=== PATIENT | female | born 1995 | race Caucasian/White ===

== ENCOUNTER 2024-02-22 10:44 | Emergency (ER) | payer OTHER, SELFPAY ==
[2024-02-22 10:46] VITALS: BP 148/97; PULSE 110; RESP 18; TEMP 37; O2SAT 99; BMI 27.3
--- NOTE | 2024-02-22 11:10 | US_ITS ---
EXAM: US ABDOMEN LIMITED, RIGHT UPPER QUADRANT CLINICAL INDICATION: RUQ PAIN TECHNIQUE: Real-time ultrasound of the right upper quadrant with image documentation. COMPARISON: No relevant prior studies available. FINDINGS: LIVER: Normal. There is normal echotexture. No focal hepatic lesion. No intrahepatic biliary ductal dilation. GALLBLADDER: Tumefactive sludge noted within the gallbladder. No acoustic shadowing to suggest gallbladder stone. No gallbladder wall thickening is demonstrated. No pericholecystic fluid. Negative sonographic Philip''s sign. COMMON BILE DUCT: Unremarkable as visualized. The proximal common bile duct is normal size. PANCREAS: Unremarkable as visualized. No focal abnormality is demonstrated in the pancreas. No pancreatic ductal dilatation. RIGHT KIDNEY: Small calcifications are noted within the right kidney. There is no hydronephrosis. No shadowing calculus. No focal lesion or perinephric collection is demonstrated. US/Gallbladder IMPRESSION: 1. Gallbladder sludge without stones. 2. Right nephrolithiasis. Electronically Signed: Dylan Villela MD at 12:44 EDT ,
--- NOTE | 2024-02-22 11:10 | ED.VIS.GI ---
HPI HPI - GI History of Present Illness Chief Complaint: Abd Pain Informant: patient Abdominal Pain/Flank Pain Onset: Days Context: Gradual Onset Timing: Intermittent Location: Epigastric and RUQ Current Severity: Mild Maximum Severity: Mild Worsened by: Food Relieved by: Nothing Nausea/Vomiting/Emesis GI Symptom: Positive for Nausea; Negative for Vomiting Onset: Days Severity: Mild Diarrhea/Melena/Hematochezia GI Symptom: Positive for Diarrhea; Negative for Melena or Hematochezia Onset: Days Stool Quality: Positive for Loose Severity: Mild Associated Symptoms Associated Symptoms: Negative for Dysuria, Frequency, Hematuria or Urgency Narrative Narrative: 28-year-old female history of migraine headaches and ADHD. No prior abdominal surgeries. Since last has had epigastric and right upper quadrant abdominal pain. Associated nausea no vomiting. No fever. She has had diarrhea with no blood. No dysuria. Food makes the pain worse. Prior similar symptoms: No Recent Illness/Hospitalization: No PFSH PFSH Home Medications ?Medication ?Instructions ?Recorded ?Last Taken ?Type ondansetron 4 mg disintegrating 4 mg PO Q6H PRN nausea and 02/22/24 Unknown Rx tablet vomiting #10 tabs Allergy/AdvReac Type Severity Reaction Status Date / Time meloxicam (From Mobic) AdvReac Intermediate ORAL SORES Verified 02/22/24 10:45 tramadol AdvReac Intermediate HEADACHE Verified 02/22/24 10:45 cephalexin (From Keflex) AdvReac Mild Nausea/Vom/ Verified 02/22/24 10:45 Diarrhea Social History Smoking Status: Current every day smoker tobacco type: e-cigarettes ROS ROS ED ROS Narrative Abdominal pain. Diarrhea. Nausea. Review of Systems ROS Unobtainable: Denies due to encephalopathy Constitutional Constitutional ED: Denies chills or fever(s) ENT ENT ED: Denies ear pain Cardiovascular Cardiovascular: Denies chest pain Respiratory/Chest Respiratory/Chest: Denies dyspnea Gastrointestinal Gastrointestinal: Reports abdominal pain, diarrhea and nausea; Denies constipation, melena or vomiting Genitourinary Genitourinary ED: Denies dysuria or hematuria Musculoskeletal Musculoskeletal: Denies arthralgias, back pain, myalgias or neck pain Integumentary Denies abscess or Abrasions Neurologic Neurologic: Denies headache(s) Psychiatric Psychiatric: Denies anxiety Endocrine Endocrinology: Denies polydipsia Hematologic/Lymphatic Hematologic/Lymphatic: Denies easy bleeding Allergic/Immunologic Allergic/Immunologic ED: Denies mouth swelling, tongue swelling or urticaria EXAM Physical Exam Narrative Exam Narrative: 28-year-old female no acute distress vital signs stable afebrile. H EENT exam unremarkable. Neck nontender. Lungs clear to auscultation bilaterally. Heart regular rhythm rate about 100 no murmur. Abdomen is soft mild epigastric right upper quadrant tenderness. No Philip sign. No McBurney's point tenderness. No bruising. No distention. Left side of the abdomen is nontender. No hernia or mass. No obstruction. Soft. Moving all 4 extremities. Nontender no edema. Back nontender. She is awake and alert. No focal motor deficits. Const Vital Signs: 02/22/24 10:46 Temperature 98.6 F Temperature Source Temporal Pulse Rate 110 H Respiratory Rate 18 Blood Pressure 148/97 H Blood Pressure Mean 114 Pulse Ox 99 Oxygen Delivery Method Room Air Positive well nourished and well developed; Negative for cachectic, contractures or unkempt General Appearance ED: well developed and NAD; Negative for unkempt, cachectic, contractures or pallor Nutritional Appearance: Negative for cachectic HEENT Reports moist mucous membranes normocephalic and atraumatic; Negative for trauma or tenderness Eyes PERRL and EOMs intact bilaterally General Eye ED: Negative for pale conjunctiva, scleral icterus or other Neck no lymphadenopathy, supple and no JVD General: Negative for tenderness Carotids: Negative for other Lymph Lymphatic: Negative for other Resp normal respiratory effort and clear to auscultation bilaterally Effort and Inspection: Negative for respiratory distress Auscultation: Negative for rales, rhonchi or wheezes Cardio regular rate, regular rhythm, S1 normal heart sound, S2 normal heart sound and no murmurs Rate: Negative for bradycardia or tachycardic Rhythm: Negative for abnormal rhythm GI non-distended and no masses; Negative for non-tender Inspection: Negative for abdominal distention Auscultation: normoactive bowel sounds Palpation: soft and tender; Negative for guarding, rigid, hepatomegaly, splenomegaly, hernia, mass, pulsatile mass or rebound tenderness present Back/Spine no CVA tenderness General Back: Negative for CVA tenderness Cervical Spine: Negative for cervical spine tenderness Thoracic Spine / Upper Back: Negative for thoracic spinal tenderness Lumbar Spine / Lower Back: Negative for lumbar spinal tenderness Coccyx: Negative for other Extremity full ROM General Extremety ED: Negative for edema or tenderness General Extremity: Negative for edema Neuro CN's II-XII intact bilaterally and moves all extremities Sensorium / Orientation: alert, oriented to person, oriented to place and oriented to time; Negative for orientation impaired, confused, lethargic or stuporous Sensory Exam: No sensory level loss detected Motor Exam: strength 5/5 throughout; Negative for general weakness or strength abnormal Psych mental status grossly normal and thought process normal Appearance: Negative for unkempt or other Attitude: No agitated Mood & Affect: Negative for depressed, anxious or tearful Skin no wounds General Skin Exam: Negative for jaundice or pallor Lesions: no lesions Rashes: no rashes Trauma: Negative for abrasion Nails: Negative for discolored MDM MDM MDM Narrative Medical decision making narrative: 28-year-old female with right upper quadrant and epigastric abdominal pain differential would include gallbladder, gastritis, pancreatitis. Clinically I do not think this is appendicitis or bowel obstruction. Ultrasound and labs are being obtained. She wanted some Zofran for nausea. She did not want or need anything for pain. Multiple repeat exams patient is doing well. She was given morphine for pain and Zofran for nausea. Her tests are unremarkable. Her ultrasound shows sludge. She will be discharged home with outpatient follow-up for possible gallbladder disease. Abdomen is benign. We discussed all of her test results. History & Record Review Discussion w/independent historian: Patient Additional record(s) reviewed:: No prior records Lab Data Attestation: I reviewed the patient's lab results. Lab results narrative: CBC normal. White count of 5. H&H 13 and 40. Platelets 271. Electrolytes show a gap of 6. Normal BUN of 12 and creatinine 0.79. Liver enzymes are unremarkable. Lipase is normal at 24. test is negative. Labs: Laboratory Results - last 24 hr 02/22/24 11:20 WBC 5.4 RBC 4.31 Hgb 13.7 Hct 40.4 MCV 93.7 MCH 31.8 MCHC 33.9 RDW Std Deviation 39.3 RDW Coeff of Dann 11.4 L Plt Count 271 MPV 9.6 Immature Gran % (Auto) 0.200 Neut % (Auto) 56.4 Lymph % (Auto) 30.0 [place] % (Auto) 12.1 H Eos % (Auto) 0.9 Baso % (Auto) 0.4 Absolute Neuts (auto) 3.1 Absolute Lymphs (auto) 1.63 Nucleated RBC % 0 Sodium 140 Potassium 4.2 Chloride 107 Carbon Dioxide 27.0 Anion Gap 6 BUN 12 Creatinine 0.79 Estim Creat Clear Calc 85.29 Est GFR (MDRD) Af Amer 110 Est GFR (MDRD) Non-Af 91 BUN/Creatinine Ratio 15.2 Glucose 98 Calcium 9.0 Total Bilirubin 0.40 AST 14 L ALT 16 Alkaline Phosphatase 88 Total Protein 7.3 Albumin 3.6 Globulin 3.7 Albumin/Globulin Ratio 1.0 Lipase 24 Serum , Qual NEGATIVE Radiography Diagnostic Testing: Clinical Impression(s) from Imaging Studies Gallbladder Ultrasound 02/22/24 11:10 IMPRESSION: 1. Gallbladder sludge without stones. 2. Right nephrolithiasis. Electronically Signed: Dylan Villela MD at 12:44 EDT , Discharge Plan Triage Chief Complaint: Abd Pain ED Provider: Jorge Cano Dx/Rx/DC Orders Clinical Impression: Abdominal pain Instructions: ED Abdominal Pain Unkn Cause Fem Prescriptions: New ondansetron 4 mg tablet,disintegrating 4 mg PO Q6H PRN (Reason: nausea and vomiting) Qty: 10 0RF Primary Care Provider: Glenn Becerra Referrals: Glenn Becerra, DO [Primary Care Provider] - As soon as possible Artem Murguia MD [Med Staff - Active Staff] - As soon as possible Activity Restrictions/Additional Instructions: Call and follow-up with your primary care physician for further evaluation this still could be secondary to your gallbladder. I do not see gallstones. But you do have sludge. They may have to do another test called a HIDA scan. Or you can follow-up with the general surgeon on-call today Dr. Artem Murguia that he can evaluate you to see if he feels this may be secondary to your gallbladder. Motrin and/or Tylenol for pain. Zofran as needed for nausea. [place] diet and increase slowly as tolerated. Avoid fatty, greasy foods, chocolate and cabbage. Print Language: Slovenian Disposition Disposition: Home, Self Care
[2024-02-22 11:26] LABS: Absolute Lymphocyte Count 1.63 X10^3/uL (0.83-4.51); Absolute Neutrophil Count 3.1 X10^3/uL (2.0-7.7); Basophil# 0.02 X10^3/uL; Basophil% 0.4 % (0-1); Eosinophil# 0.05 X10^3/uL; Eosinophils% 0.9 % (0-5); Hematocrit 40.4 % (37-47); Hemoglobin 13.7 g/dL (12.0-15.0); Lymphocyte # 1.63 X10^3/ul (0.83-4.51); Mean Corp Hgb Conc 33.9 g/dL (32-36); Mean Corpuscular Hgb 31.8 pg (27.0-32.0); Mean Corpuscular Volume 93.7 fL (81-99); Mean Platelet Vol. 9.6 fl (6.2-12.0); Monocyte# 0.66 X10^3/uL; Monocyte% 12.1 % (0-10); NRBC Flagged by Analyzer 0 % (0-5); Neutrophil # 3.07 X10^3/uL (2.7-7.7); Neutrophil % 56.4 % (47-70); Platelet Count 271 K/mm3 (150-450); RBC Distribution Width CV 11.4 % (11.6-14.6); RBC Distribution Width SD 39.3 fl (35.1-43.9); Red Blood Count 4.31 M/mm3 (4.2-5.4); White Blood Count 5.4 K/mm3 (4.4-11.0)
[2024-02-22] MEDS: Ondansetron 4 MG/2 ML Vial IV (11:26)
[2024-02-22 11:35] LABS: Internal QC Validated? YES +Cl - CLEAR BKGD; Pregnancy, Serum, hCG Quali. NEGATIVE Negative
[2024-02-22 11:44] LABS: AST(SGOT) 14 U/L (15-37); Alanine Aminotransfer ALT/SGPT 16 U/L (13-56); Albumin, Serum 3.6 g/dL (3.2-5.0); Alkaline Phosphatase 88 U/L (45-117); Anion Gap 6 (5-15); BUN 12 mg/dL (7-18); BUN/Creat Ratio 15.2 RATIO (10-20); Chloride 107 mmol/L (98-107); Creatinine, Serum 0.79 mg/dL (0.55-1.02); EST Glomerular Filtration Rate 91 mL/min (>60); Est Glom Filt Rate - Afr Amer 110 mL/min (>60); Estimated Creatinine Clearance 85.29 ml/min; Globulin 3.7 g/dL (2.2-4.2); Glucose 98 mg/dL (74-106); Lipase 24 U/L (13-75); Potassium 4.2 mmol/L (3.5-5.1); Protein, Total 7.3 g/dL (6.4-8.2); Sodium Level 140 mmol/L (136-145)
[2024-02-22] MEDS: morphine 8 MG/ML Syringe 6 MG IV (13:03)
[2024-02-22 13:23] VITALS: BP 108/80; PULSE 75; RESP 18; O2SAT 100
[2024-02-22 13:24] VITALS: BP 108/80; PULSE 75; RESP 18; TEMP 35.8; O2SAT 100
== END 2024-02-22 13:25 | disposition home or self-care (01) ==
PROVIDERS: Emergency Provider Emergency Medicine; PCP Family Medicine; Visit Provider Emergency Medicine
DX: R10.11 Right upper quadrant pain (principal); R11.2 Nausea with vomiting, unspecified; F17.290 Nicotine dependence, other tobacco product, uncomplicated; R10.13 Epigastric pain
CPT/HCPCS: 76705; 80053; 83690; 84703; 85025; 96374; 96375; 99283; A4216; J2405

== ENCOUNTER 2024-03-07 12:56 | Emergency (ER) | payer OTHER, SELFPAY ==
[2024-03-07 12:57] VITALS: BP 121/91; PULSE 80; RESP 19; TEMP 35.7; O2SAT 100
[2024-03-07 14:23] LABS: Bacteria 0 SEEN /hpf (None Seen); Mucous, Urine 0 SEEN /hpf (<or=2+); Red Blood Cells-Urine 0 SEEN /hpf (0-5); Squamous Epithelial Cells - UA 0 SEEN /hpf (5-10); White Blood Cells 0 SEEN /hpf (0-5)
[2024-03-07 14:49] LABS: Glucose, Dipstick Normal (Normal); Ketone-Dipstick Negative (Negative); Leukocyte Esterase-Dipstick 25 /ul (Negative); Nitrite-Dipstick Negative (Negative); Occult Blood-Urine Negative /ul (Negative); Protein-Dipstick 15 mg/dl (Negative); Urine Bilirubin Dipstick Negative (Negative); Urine Urobilinogen 1 mg/dl (Normal); Urine pH 6.5 (5.0 - 8.0)
[2024-03-07 14:55] LABS: Color, Urine Yellow (Yellow); Urine Clarity Sl Cloudy (Clear)
[2024-03-07 14:56] VITALS: BP 121/88; PULSE 74; RESP 16; O2SAT 99
--- NOTE | 2024-03-07 15:47 | CT_ITS ---
STUDY: CT ABDOMEN AND PELVIS WITH CONTRAST REASON FOR EXAM: Female, 28 years old. right sided abd pain, vomting RADIATION DOSAGE (If Supplied By Facility): CTDIvol = ( 10.99 ) mGy, DLP = ( 399.12 ) mGycm TECHNIQUE: Transaxial images were obtained from the dome of the diaphragm to the symphysis pubis without oral contrast. IV 100mL Isovue-300 was administered. Sagittal and coronal images were reconstructed. Individualized dose optimization techniques were used for this CT. COMPARISON: None. FINDINGS: The visualized lung bases are unremarkable. The visualized portions of the heart are within normal limits. Normal liver. The gallbladder is contracted. Normal spleen. Normal pancreas. Normal bilateral adrenal glands. Bilateral small nonobstructing renal stones. No hydronephrosis, ureteral stone, ureteral dilatation. Normal visualized stomach. Normal small intestine. Normal colon. The appendix is visualized and appears normal. Normal abdominal aorta. Normal inferior vena cava. Normal retroperitoneum. Normal urinary bladder. Intrauterine device within the uterus. 6 cm oval mass of water attenuation without nodularity or septation in the left adnexa consistent with a physiologic cyst, paraovarian cyst, or cystadenoma. Prominent left ovarian vein and parametrial veins which can be seen in pelvic congestion syndrome. Normal abdominal wall. Normal osseous structures. CT/Abdomen/Pelvis W IV Cont ONLY IMPRESSION: 1. 6 cm left-sided physiologic cyst, paraovarian cyst, or cystadenoma. 2. Suspect pelvic congestion syndrome. 3. Bilateral small nonobstructing renal stones. Electronically Signed: Alex Hui MD at 17:15 EDT ,
[2024-03-07 15:56] LABS: Absolute Neutrophil Count 3.3 X10^3/uL (2.0-7.7); Basophil# 0.02 X10^3/uL; Basophil% 0.3 % (0-1); Eosinophil# 0.06 X10^3/uL; Hematocrit 39.8 % (37-47); Hemoglobin 13.9 g/dL (12.0-15.0); Lymphocyte % 33.6 % (19-41); Mean Corp Hgb Conc 34.9 g/dL (32-36); Mean Corpuscular Hgb 32.3 pg (27.0-32.0); Mean Corpuscular Volume 92.6 fL (81-99); Mean Platelet Vol. 9.9 fl (6.2-12.0); Monocyte% 10.1 % (0-10); NRBC Flagged by Analyzer 0 % (0-5); Neutrophil # 3.27 X10^3/uL (2.7-7.7); Neutrophil % 54.8 % (47-70); Platelet Count 256 K/mm3 (150-450); RBC Distribution Width CV 11.7 % (11.6-14.6); RBC Distribution Width SD 39.3 fl (35.1-43.9)
[2024-03-07 16:00] VITALS: BP 131/86; PULSE 65; RESP 16; O2SAT 98
[2024-03-07] MEDS: 0.9% Normal Saline (1000mL) 1,000 ML 999 ML IV (16:00)
[2024-03-07] MEDS: Ondansetron 4 MG/2 ML Vial IV (16:00)
--- NOTE | 2024-03-07 16:24 | EDS_ITS ---
HPI HPI - GI History of Present Illness Chief Complaint: Nausea/Vomiting/Diarrhea Informant: patient Narrative Narrative: 28-year-old female for the past 4 days has had nausea vomiting diarrhea. She had some subjective fevers and chills for the first day or 2 but none since. No blood in emesis or stools. The diarrhea has been watery and more than 10 times per day on the toilet. She states this started while she and family were in a cabin vacationing in [place]. She denies any suspicious food ingestion, and states they all pretty much ate the same thing and no one else is ill. No other sick contacts that she knows of. She has been having right upper quadrant pain radiating into the right shoulder however that has been present for several weeks, for which she was seen here in the ER diagnosed with gallbladder sludge without stones, she followed up with Dr. Amor with general surgery in [facility], and is scheduled for a cholecystectomy. Upon having this illness she called her surgeon and her surgery was moved up to the day after tomorrow. She states the pain in her right upper quadrant into her right shoulder is not new but it seems more prominent since the symptoms started in the last 4 days, and it does seem to get worse with eating when she keeps it down, and makes her more nauseated as well. PFSH PFSH Medical History no medical history no medical history Home Medications ?Medication ?Instructions ?Recorded ?Last Taken ?Type ondansetron 4 mg disintegrating 4 mg PO Q6H PRN nausea and 02/22/24 Unknown Rx tablet vomiting #10 tabs Allergy/AdvReac Type Severity Reaction Status Date / Time meloxicam (From Mobic) AdvReac Intermediate ORAL SORES Verified 03/07/24 15:54 tramadol AdvReac Intermediate HEADACHE Verified 03/07/24 15:54 cephalexin (From Keflex) AdvReac Mild Nausea/Vom/ Verified 03/07/24 15:54 Diarrhea Surgical History no surgical history no surgical history Social History Smoking Status: Current every day smoker tobacco type: e-cigarettes ROS ROS ED Constitutional Constitutional ED: Reports chills, fever(s) and subjective Eyes Eyes: Denies change in vision or diplopia ENT ENT ED: Denies rhinorrhea or sore throat Cardiovascular Cardiovascular: Denies chest pain or palpitations Respiratory/Chest Respiratory/Chest: Denies cough or dyspnea Gastrointestinal Gastrointestinal: Reports abdominal pain, diarrhea, nausea and vomiting; Denies hematemesis, hematochezia or melena Genitourinary Genitourinary ED: Denies dysuria or hematuria Musculoskeletal Musculoskeletal: Reports back pain; Denies neck pain Integumentary Denies abscess or rash Neurologic Neurologic: Denies headache(s), paresthesias or weakness Psychiatric Psychiatric: Denies anxiety or suicidal thoughts EXAM Physical Exam Const Vital Signs: 03/07/24 12:57 03/07/24 14:56 03/07/24 16:00 Temperature 96.3 F L Temperature Source Temporal Pulse Rate 80 74 65 Respiratory Rate 19 H 16 16 Blood Pressure 121/91 H 121/88 H 131/86 H Blood Pressure Mean 101 99 101 Pulse Ox 100 99 98 Oxygen Delivery Method Room Air Room Air Positive well nourished and well developed General Appearance ED: well developed and NAD HEENT Reports moist mucous membranes normocephalic and atraumatic Eyes PERRL and EOMs intact bilaterally Neck full ROM and supple Resp normal respiratory effort and clear to auscultation bilaterally Cardio regular rate, regular rhythm and no murmurs GI non-distended GI Narrative: Subjectively tender in the right upper and lower quadrants, negative Philip no guarding or rebound otherwise. Auscultation: normoactive bowel sounds Palpation: soft Back/Spine no CVA tenderness General Back: other FROM Extremity normal to inspection General Extremety ED: Negative for edema, pulses abnormal or tenderness General Extremity: Negative for edema or pulses abnormal Neuro oriented x3, CN's II-XII intact bilaterally and no sensory deficits noted Sensorium / Orientation: awake and alert Motor Exam: strength 5/5 throughout Skin no rashes or lesions noted and no wounds MDM MDM MDM Narrative Medical decision making narrative: While treating the patient with IV fluids, Zofran, Toradol, I obtained testing to evaluate for acute cholecystitis, pancreatitis, appendicitis, pyelonephritis. This entailed blood work, urinalysis, which is negative, and a CT abdomen/pelvis with IV contrast. I reviewed the images and the result which I agree with, it shows basically incidental findings including what is consistent with pelvic congestion syndrome, a physiologic cyst in the left ovary, and no acute abnormality. I think her symptoms are more consistent with gastroenteritis than acute cholecystitis, but she has been having the right upper quadrant pain for weeks and complicates the acute issue which I think is probably unrelated. Her white blood count is only 6.0, there is no left shift, this is also reassuring. At this time I would not recommend antibiotics, just supportive care and encourage lots of fluids and follow-up as scheduled for her surgery in 2 days. She already has a supply of zofran at home. Lab Data Attestation: I reviewed the patient's lab results. Labs: Laboratory Results - last 24 hr 03/07/24 03/07/24 14:15 15:35 WBC 6.0 RBC 4.30 Hgb 13.9 Hct 39.8 MCV 92.6 MCH 32.3 H MCHC 34.9 RDW Std Deviation 39.3 RDW Coeff of Dann 11.7 Plt Count 256 MPV 9.9 Immature Gran % (Auto) 0.200 Neut % (Auto) 54.8 Lymph % (Auto) 33.6 [place] % (Auto) 10.1 H Eos % (Auto) 1.0 Baso % (Auto) 0.3 Absolute Neuts (auto) 3.3 Absolute Lymphs (auto) 2.00 Nucleated RBC % 0 Sodium 141 Potassium 3.5 Chloride 109 H Carbon Dioxide 26.0 Anion Gap 6 BUN 10 Creatinine 0.72 Est GFR (MDRD) Af Amer 121 Est GFR (MDRD) Non-Af 100 BUN/Creatinine Ratio 13.8 Glucose 72 L Calcium 8.8 Total Bilirubin 0.20 AST 14 L ALT 15 Alkaline Phosphatase 94 Total Protein 7.2 Albumin 3.6 Globulin 3.6 Albumin/Globulin Ratio 1.0 Lipase 33 Serum , Qual NEGATIVE Urine Color Yellow Urine Clarity Sl Cloudy Urine pH 6.5 Ur Specific [place] 1.010 Urine Protein 15 H Urine Glucose (UA) Normal Urine Ketones Negative Urine Occult Blood Negative Urine Nitrite Negative Urine Bilirubin Negative Urine Urobilinogen 1 H Ur Leukocyte Esterase 25 H Urine RBC 0 SEEN Urine WBC 0 SEEN Ur Squamous Epith Cells 0 SEEN Urine Bacteria 0 SEEN Urine Mucus 0 SEEN Radiography Diagnostic Testing: Clinical Impression(s) from Imaging Studies Abdomen/Pelvis CT 03/07/24 15:47 IMPRESSION: 1. 6 cm left-sided physiologic cyst, paraovarian cyst, or cystadenoma. 2. Suspect pelvic congestion syndrome. 3. Bilateral small nonobstructing renal stones. Electronically Signed: Alex Hui MD at 17:15 EDT , Discharge Plan Triage Chief Complaint: Nausea/Vomiting/Diarrhea ED Provider: Pernell Hall Dx/Rx/DC Orders Clinical Impression: Acute gastroenteritis, Abdominal pain, RUQ Instructions: Viral Gastroenteritis Prescriptions: No Action ondansetron 4 mg tablet,disintegrating 4 mg PO Q6H PRN (Reason: nausea and vomiting) Qty: 10 0RF Primary Care Provider: Glenn Becerra Referrals: Glenn Becerra, DO [Primary Care Provider] - 3-5 Days if not improving Print Language: Ghanaian Disposition Disposition: Home, Self Care
[2024-03-07 16:29] LABS: Internal QC Validated? YES +Cl - CLEAR BKGD; Pregnancy, Serum, hCG Quali. NEGATIVE Negative
[2024-03-07 16:30] LABS: AST(SGOT) 14 U/L (15-37); Alanine Aminotransfer ALT/SGPT 15 U/L (13-56); Albumin, Serum 3.6 g/dL (3.2-5.0); Alkaline Phosphatase 94 U/L (45-117); Anion Gap 6 (5-15); BUN 10 mg/dL (7-18); BUN/Creat Ratio 13.8 RATIO (10-20); Calcium,Total 8.8 mg/dL (8.5-10.1); Chloride 109 mmol/L (98-107); Creatinine, Serum 0.72 mg/dL (0.55-1.02); EST Glomerular Filtration Rate 100 mL/min (>60); Est Glom Filt Rate - Afr Amer 121 mL/min (>60); Globulin 3.6 g/dL (2.2-4.2); Glucose 72 mg/dL (74-106); Potassium 3.5 mmol/L (3.5-5.1); Protein, Total 7.2 g/dL (6.4-8.2); Sodium Level 141 mmol/L (136-145)
[2024-03-07 16:47] LABS: Lipase 33 U/L (13-75)
[2024-03-07] MEDS: Ketorolac 15 MG/ML Vial IV (16:49)
[2024-03-07 17:53] VITALS: BP 136/102; PULSE 77; RESP 16; TEMP 36.6; O2SAT 99
== END 2024-03-07 17:54 | disposition home or self-care (01) ==
PROVIDERS: Emergency Provider Emergency Medicine; PCP Family Medicine; Visit Provider Emergency Medicine
DX: K52.9 Noninfective gastroenteritis and colitis, unspecified (principal); R10.11 Right upper quadrant pain; F17.290 Nicotine dependence, other tobacco product, uncomplicated
CPT/HCPCS: 74177; 80053; 81001; 83690; 84703; 85025; 96361; 96374; 96375; 99282; J7030; Q9967; A4216; J2405